=== PATIENT | male | born 1940 | race Hispanic/Latino ===

== ENCOUNTER 2018-04-01 09:21 | Emergency (ER) | payer MEDICARE ==
[2018-04-01 10:01] LABS: APPEARANCE,URINE SL CLOUDY (CLEAR); BILIRUBIN,URINE NEGATIVE (NEGATIVE); COLOR,URINE RED (YELLOW); GLUCOSE, URINE (UA) NEGATIVE (NEGATIVE); KETONES,URINE NEGATIVE (NEGATIVE); LEUKOCYTE ESTERASE ,URINE NEGATIVE (NEGATIVE); NITRATE,URINE NEGATIVE (NEGATIVE); OCCULT BLOOD,URINE LARGE (NEGATIVE); PH,URINE 7.5 (5.0-8.0); PROTEIN,URINE NEGATIVE (NEGATIVE); UROBILINOGEN,URINE 0.2 mg/dL (0.2-1.0)
[2018-04-01] MEDS ORDERED: LEVOFLOXACIN 500 MG TABLET ONE (10:13)
[2018-04-01 10:21] LABS: BACTERIA,URINE Rare /HPF (None Seen); RBC,URINE >100 /HPF (0-1); SQUAMOUS EPITHELIAL CELL,UR Rare /HPF (0-2); WBC,URINE None Seen /HPF (0-1)
== END 2018-04-01 12:35 | disposition home or self-care (01) ==
LOC: EDH 09:21
DX: R33.9 Retention of urine, unspecified (principal); E11.9 Type 2 diabetes mellitus without complications; M19.90 Unspecified osteoarthritis, unspecified site; G30.9 Alzheimer's disease, unspecified; F02.80 Dementia in other diseases classified elsewhere, unspecified severity, without behavioral disturbance, psychotic disturbance, mood disturbance, and anxiety; Z79.899 Other long term (current) drug therapy; Z90.49 Acquired absence of other specified parts of digestive tract
CPT/HCPCS: 51702; 81001

== ENCOUNTER 2018-08-21 20:52 | Emergency (ER) | payer MEDICARE ==
[2018-08-21 21:37] LABS: BASOPHILS % (AUTO) 0.2 % (0.0-5.0); HEMATOCRIT 39.7 % (42-54); LYMPHOCYTES % (AUTO) 14.9 % (21.0-51.0); MEAN CORPUSCULAR HEMOGLOBIN 29.2 pg (27.0-33.0); MEAN CORPUSCULAR HGB CONC 33.1 g/dL (32.0-36.0); MEAN CORPUSCULAR VOLUME 88.2 fL (79-99); MONOCYTES % (AUTO) 6.8 % (3.0-13.0); NEUTROPHILS % (AUTO) 77.1 % (40.0-77.0); NUCLEATED RED BLOOD CELLS 0.1 % (0.0-0.19); PLATELET COUNT (AUTO) 141 K/uL (130-400); RED CELL DISTRIBUTION WIDTH 14.7 % (11.0-15.5); WHITE BLOOD COUNT (AUTO) 7.2 K/uL (4.8-10.8)
[2018-08-21 22:07] LABS: APPEARANCE,URINE Clear (CLEAR); BILIRUBIN,URINE Negative (NEGATIVE); COLOR,URINE Yellow (YELLOW); GLUCOSE, URINE (UA) Negative (NEGATIVE); KETONES,URINE Trace mg/dL (NEGATIVE); LEUKOCYTE ESTERASE ,URINE Negative (NEGATIVE); NITRATE,URINE Negative (NEGATIVE); OCCULT BLOOD,URINE Negative (NEGATIVE); PH,URINE 5.5 (5.0-8.0); PROTEIN,URINE Negative (NEGATIVE)
[2018-08-21 22:09] LABS: CREATININE 1.1 mg/dL (0.5-1.5); POTASSIUM 4.1 mmol/L (3.5-5.1)
[2018-08-21 22:14] LABS: ALBUMIN 3.8 g/dL (3.5-5.0); BILIRUBIN,TOTAL 0.5 mg/dL (0.2-1.0); TOTAL PROTEIN, SERUM 6.7 g/dL (6.0-8.3)
[2018-08-21] MEDS ORDERED: AZITHROMYCIN 250 MG TABLET PO ONE (23:04)
[2018-08-21] MEDS ORDERED: MAG HYDROX/AL HYDROX/SIMETH ES 30 ML SUSP UDCUP ONE (23:04)
[2018-08-21] MEDS ORDERED: DEXAMETHASONE SOD PHOSPHATE 10MG/ML 1ML VIAL ONE (23:04)
[2018-08-21] MEDS ORDERED: LIDOCAINE HCL 2% VISCOUS 15 ML UDCUP ONE (23:04)
== END 2018-08-21 23:29 | disposition home or self-care (01) ==
LOC: EDH 20:52
DX: J20.9 Acute bronchitis, unspecified (principal); E86.9 Volume depletion, unspecified; E11.9 Type 2 diabetes mellitus without complications; M19.90 Unspecified osteoarthritis, unspecified site; G30.9 Alzheimer's disease, unspecified; F02.80 Dementia in other diseases classified elsewhere, unspecified severity, without behavioral disturbance, psychotic disturbance, mood disturbance, and anxiety; Z90.49 Acquired absence of other specified parts of digestive tract
CPT/HCPCS: 36415; 71046; 80053; 81003; 82550; 83605; 84484; 85025; 87040; 87804 ×2; 93005; 96374; 99284; J1100

== ENCOUNTER 2019-03-03 09:47 | Inpatient (IN) | payer MEDICARE ==
[~2019-03-03] VITALS: Ht 198.1 cm; Wt 77.8 kg
[2019-03-03 10:42] LABS: BASOPHILS % (AUTO) 0.3 % (0.0-5.0); EOSINOPHILS % (AUTO) 2.1 % (0.0-8.0); HEMATOCRIT 42.4 % (42-54); LYMPHOCYTES % (AUTO) 15.8 % (21.0-51.0); MEAN CORPUSCULAR HEMOGLOBIN 28.8 pg (27.0-33.0); MEAN CORPUSCULAR HGB CONC 33.1 g/dL (32.0-36.0); MONOCYTES % (AUTO) 9.3 % (3.0-13.0); NEUTROPHILS % (AUTO) 72.5 % (40.0-77.0); NUCLEATED RED BLOOD CELLS 0.1 % (0.0-0.19); PLATELET COUNT (AUTO) 156 K/uL (130-400); RED BLOOD CELL COUNT(AUTO) 4.88 MIL/uL (4.50-6.20); RED CELL DISTRIBUTION WIDTH 15.8 % (11.0-15.5); WHITE BLOOD COUNT (AUTO) 6.3 K/uL (4.8-10.8)
[2019-03-03 10:48] LABS: APPEARANCE,URINE Clear (CLEAR); BILIRUBIN,URINE Small (NEGATIVE); COLOR,URINE Dark Yellow (YELLOW); GLUCOSE, URINE (UA) 250 mg/dL (NEGATIVE); KETONES,URINE Trace mg/dL (NEGATIVE); LEUKOCYTE ESTERASE ,URINE Small (NEGATIVE); NITRATE,URINE Negative (NEGATIVE); OCCULT BLOOD,URINE Negative (NEGATIVE); PROTEIN,URINE Trace mg/dL (NEGATIVE)
[2019-03-03 10:50] LABS: CREATININE 0.9 mg/dL (0.5-1.5); POTASSIUM 3.9 mmol/L (3.5-5.1)
[2019-03-03 10:54] LABS: ALBUMIN 3.6 g/dL (3.5-5.0); BILIRUBIN,TOTAL 0.8 mg/dL (0.2-1.0); TOTAL PROTEIN, SERUM 6.9 g/dL (6.0-8.3)
[2019-03-03 10:57] LABS: B-TYPE NATRIURETIC PEPTIDE 254 pg/mL (0-100)
[2019-03-03 11:36] LABS: RAPID GROUP A STREP NEGATIVE (NEGATIVE)
[2019-03-03] MEDS ORDERED: CEFTRIAXONE SODIUM 1 GM ONE (12:38)
[2019-03-03] MEDS ORDERED: FUROSEMIDE 10 MG/ML 2ML VIAL ONE (12:38)
[2019-03-03] MEDS ORDERED: SODIUM CHLORIDE 0.9% 100 ML IV ONE (12:38)
[2019-03-03] MEDS ORDERED: LEVOFLOXACIN 500 MG/D5W 100 ML 100 ML ONE (13:17)
[2019-03-03 13:20] LABS: BACTERIA,URINE None Seen /HPF (None Seen); RBC,URINE None Seen /HPF (0-1); SQUAMOUS EPITHELIAL CELL,UR 0-2 /HPF (0-2)
[2019-03-03] MEDS ORDERED: NITROGLYCERIN 1GM/1 INCH PACKET TD ONE (13:25)
[2019-03-03] MEDS ORDERED: HYDRALAZINE HCL 20 MG/ML VIAL IV PRN (13:30)
[2019-03-03] MEDS: AZITHROMYCIN 500MG+NS 250ML 250 ML IV SCH (13:30)
[2019-03-03 13:54] LABS: PHOSPHORUS 2.7 mg/dL (2.5-4.9)
[2019-03-03] MEDS: FUROSEMIDE 10 MG/ML 4ML VIAL IVP SCH ×2 (14:00→21:30)
[2019-03-03 14:23] VITALS: BP 121/82
[2019-03-03 15:00] VITALS: BP 112/59
[2019-03-03] MEDS ORDERED: SITA100T12 PO (15:24)
[2019-03-03] MEDS ORDERED: BENZ-51 PO (15:24)
[2019-03-03] MEDS ORDERED: TAMS-1 PO (15:24)
[2019-03-03] MEDS ORDERED: MEMA10TA20 PO (15:24)
[2019-03-03] MEDS ORDERED: LEVO25TA54 PO (15:24)
[2019-03-03] MEDS ORDERED: ACET5SOL4 PO (15:24)
[2019-03-03] MEDS ORDERED: GLIP5TAB11 PO (15:24)
[2019-03-03] MEDS ORDERED: FINA5TAB41 PO (15:24)
[2019-03-03] MEDS ORDERED: PIOG30TA70 PO (15:24)
[2019-03-03 16:00] LABS: INR 1.1 (0.85-1.15); PARTIAL THROMBOPLASTIN TIME 29.3 SEC (26.3-35.5); PROTHROMBIN TIME 11.3 SEC (9.6-11.6)
[2019-03-03] MEDS: IPRATROPIUM/ALBUTEROL SULFATE 3 ML SOLUTION IH SCH ×2 (18:38→23:44)
[2019-03-03 19:42] VITALS: BP 96/76
[2019-03-03] MEDS: FAMOTIDINE/PF 20 MG/2 ML VIAL IV SCH (21:29)
[2019-03-03] MEDS: METOPROLOL TARTRATE 25 MG TAB PO SCH (21:30)
[2019-03-03] MEDS: CEFTRIAXONE SODIUM 1 GM IV SCH (21:30)
[2019-03-03 21:34] VITALS: BP 118/62
[2019-03-03] MEDS ORDERED: ACETAMINOPHEN-CODEINE ELIXIR 5 ML UDCUP PO PRN (22:45)
[2019-03-03 23:33] VITALS: BP 124/79
[2019-03-04 03:57] VITALS: BP 115/67
[2019-03-04 04:08] LABS: HEMATOCRIT 40.2 % (42-54); MEAN CORPUSCULAR HEMOGLOBIN 29.5 pg (27.0-33.0); MEAN CORPUSCULAR HGB CONC 34.1 g/dL (32.0-36.0); MEAN CORPUSCULAR VOLUME 86.6 fL (79-99); PLATELET COUNT (AUTO) 172 K/uL (130-400); RED BLOOD CELL COUNT(AUTO) 4.64 MIL/uL (4.50-6.20); RED CELL DISTRIBUTION WIDTH 15.5 % (11.0-15.5); WHITE BLOOD COUNT (AUTO) 6.5 K/uL (4.8-10.8)
[2019-03-04 04:26] LABS: CARBON DIOXIDE 31 mmol/L (21-32); CHLORIDE 102 mmol/L (101-111); CREATININE 1.1 mg/dL (0.5-1.5); GLOMERULAR FILTR. RATE CALC 69 mL/min (>60); GLUCOSE,RANDOM 178 mg/dL (70-105); POTASSIUM 3.9 mmol/L (3.5-5.1); SODIUM SERUM 141 mmol/L (136-145); UREA NITROGEN, BLOOD 20 mg/dL (7-18)
[2019-03-04 04:52] LABS: B-TYPE NATRIURETIC PEPTIDE 230 pg/mL (0-100)
[2019-03-04] MEDS: INSULIN HUMULIN R 100 UNIT/ML 3ML SQ SCH ×4 (06:31→22:28)
[2019-03-04] MEDS: IPRATROPIUM/ALBUTEROL SULFATE 3 ML SOLUTION IH SCH ×4 (06:32→23:27)
[2019-03-04] MEDS: LEVOTHYROXINE 25 MCG TABLET PO SCH (06:48)
[2019-03-04 07:00] VITALS: BP 99/50
[2019-03-04] MEDS: BENZONATATE 100 MG CAPSULE PO SCH ×3 (10:10→22:11)
[2019-03-04] MEDS: FINASTERIDE 5 MG TABLET PO SCH (10:10)
[2019-03-04] MEDS: MEMANTINE HCL 5 MG TABLET PO SCH ×2 (10:10→22:11)
[2019-03-04] MEDS: GLIPIZIDE 5 MG TABLET PO SCH (10:10)
[2019-03-04] MEDS: METOPROLOL TARTRATE 25 MG TAB PO SCH ×2 (10:10→22:11)
[2019-03-04] MEDS: FAMOTIDINE/PF 20 MG/2 ML VIAL IV SCH ×2 (10:10→22:11)
[2019-03-04] MEDS: CEFTRIAXONE SODIUM 1 GM IV SCH ×2 (10:10→22:17)
[2019-03-04] MEDS: LINAGLIPTIN 5 MG TABLET PO SCH (10:10)
[2019-03-04] MEDS: FUROSEMIDE 10 MG/ML 4ML VIAL IVP SCH ×3 (10:10→22:11)
[2019-03-04] MEDS: TAMSULOSIN HCL 0.4 MG CAP.ER.24H PO SCH ×2 (10:11→22:11)
[2019-03-04] MEDS: ENOXAPARIN SODIUM 40 MG/0.4 ML SYRINGE SQ SCH (10:14)
[2019-03-04] MEDS: GENTAMICIN SULFATE 0.3% 3.5 GM OPHTH OINT OS SCH ×2 (10:21→22:18)
[2019-03-04 11:00] VITALS: BP 133/56
--- NOTE | 2019-03-04 11:34 | NUR ---
DC PLAN VISITED WITH PATIENT. PATIENT LIVES WITH SPOUSE. INDEPENDENT ABLE TO PERFORM ADL'S. PATIENT HAS NO SERVICES OR DME'S. FEELS SAFE TO RETURN HOME. Addendum: 03/04/19 at 1135 by SCOTT MERAZ RN CM Amended: Links added.
[2019-03-04] MEDS: AZITHROMYCIN 500MG+NS 250ML 250 ML IV SCH (11:51)
[2019-03-04 15:00] VITALS: BP 107/65
[2019-03-04 20:18] VITALS: BP 123/67
[2019-03-04 23:55] VITALS: BP 97/66
[2019-03-05 03:35] LABS: HEMATOCRIT 39.8 % (42-54); MEAN CORPUSCULAR HGB CONC 33.3 g/dL (32.0-36.0); MEAN CORPUSCULAR VOLUME 87.2 fL (79-99); PLATELET COUNT (AUTO) 176 K/uL (130-400); RED BLOOD CELL COUNT(AUTO) 4.57 MIL/uL (4.50-6.20); RED CELL DISTRIBUTION WIDTH 15.7 % (11.0-15.5); WHITE BLOOD COUNT (AUTO) 6.8 K/uL (4.8-10.8)
[2019-03-05 03:52] LABS: CARBON DIOXIDE 31 mmol/L (21-32); CHLORIDE 100 mmol/L (101-111); CREATININE 1.2 mg/dL (0.5-1.5); GLOMERULAR FILTR. RATE CALC 62 mL/min (>60); GLUCOSE,RANDOM 150 mg/dL (70-105); POTASSIUM 3.3 mmol/L (3.5-5.1); SODIUM SERUM 140 mmol/L (136-145); UREA NITROGEN, BLOOD 30 mg/dL (7-18)
[2019-03-05 04:06] LABS: B-TYPE NATRIURETIC PEPTIDE 116 pg/mL (0-100)
[2019-03-05 04:22] VITALS: BP 102/65
[2019-03-05] MEDS: INSULIN HUMULIN R 100 UNIT/ML 3ML SQ SCH (06:11)
[2019-03-05] MEDS: LEVOTHYROXINE 25 MCG TABLET PO SCH (06:25)
[2019-03-05] MEDS: IPRATROPIUM/ALBUTEROL SULFATE 3 ML SOLUTION IH SCH (06:59)
[2019-03-05 07:58] VITALS: BP 103/59
[2019-03-05] MEDS: LINAGLIPTIN 5 MG TABLET PO SCH (08:52)
[2019-03-05] MEDS: TAMSULOSIN HCL 0.4 MG CAP.ER.24H PO SCH (08:52)
[2019-03-05] MEDS: MEMANTINE HCL 5 MG TABLET PO SCH (08:52)
[2019-03-05] MEDS: BENZONATATE 100 MG CAPSULE PO SCH (08:52)
[2019-03-05] MEDS: METOPROLOL TARTRATE 25 MG TAB PO SCH (08:53)
[2019-03-05] MEDS: GLIPIZIDE 5 MG TABLET PO SCH (08:53)
[2019-03-05] MEDS: FINASTERIDE 5 MG TABLET PO SCH (08:53)
[2019-03-05] MEDS: ENOXAPARIN SODIUM 40 MG/0.4 ML SYRINGE SQ SCH (09:00)
[2019-03-05] MEDS: FAMOTIDINE/PF 20 MG/2 ML VIAL IV SCH (09:01)
[2019-03-05] MEDS: FUROSEMIDE 10 MG/ML 4ML VIAL IVP SCH (09:01)
[2019-03-05] MEDS: CEFTRIAXONE SODIUM 1 GM IV SCH (09:01)
[2019-03-05] MEDS ORDERED: POTASSIUM CHLORIDE 20 MEQ ERTAB PO SCH (09:15)
[2019-03-05] MEDS ORDERED: LEVO500T2 PO (09:34)
[2019-03-05] MEDS ORDERED: IPRA3AMP24 IH (09:34)
[2019-03-05] MEDS ORDERED: METO25 PO (09:34)
== END 2019-03-05 12:15 | disposition home or self-care (01) | DRG 193 ==
LOC: EDH 09:47 → EDHIP 13:25 → 2AH 14:43
PROVIDERS: ADMIT Internal Medicine; ATTEND Internal Medicine
DX: J18.9 Pneumonia, unspecified organism (principal); J96.01 Acute respiratory failure with hypoxia; I50.1 Left ventricular failure, unspecified; N39.0 Urinary tract infection, site not specified; E11.65 Type 2 diabetes mellitus with hyperglycemia; F32.9 Major depressive disorder, single episode, unspecified; F02.80 Dementia in other diseases classified elsewhere, unspecified severity, without behavioral disturbance, psychotic disturbance, mood disturbance, and anxiety; G30.9 Alzheimer's disease, unspecified; M19.90 Unspecified osteoarthritis, unspecified site; N40.0 Benign prostatic hyperplasia without lower urinary tract symptoms; Z80.0 Family history of malignant neoplasm of digestive organs; Z79.84 Long term (current) use of oral hypoglycemic drugs; Z80.1 Family history of malignant neoplasm of trachea, bronchus and lung; Z90.49 Acquired absence of other specified parts of digestive tract; I50.9 Heart failure, unspecified
CPT/HCPCS: 36415; 71045; 71250; 80048; 80053; 81001; 82550; 82948; 83036; 83605; 83735; 83880; 84100; 84145; 84484; 85025; 85027; 85610; 85730; 87077; 87088; 87186; 87804; 87880; 93005; 94640; 94664; G0378; J0456; J0696; J1650; J1815; J1940; J1956; J3490

== ENCOUNTER 2021-03-25 02:26 | Inpatient (IN) | payer OTHER, MEDICARE ==
[~2021-03-25] VITALS: Ht 177.8 cm; Wt 75.0 kg
[~2021-03-25 02:26] MED LIST: ACET5SOL4 PO; BENZ-70 PO; FINA5TAB41 PO; GLIP5TAB11 PO; IPRA3AMP24 IH; LEVO25TA54 PO; LEVO500T2 PO; MEMA10TA55 PO; METO25 PO; SITA100T12 PO; TAMS-1 PO
[2021-03-25 03:20] LABS: ABG BASE EXCESS 0.2 mmol/L (-2.0-3.0); ABG HCO3 23.2 mmol/L (21.0-28.0); ABG OXYGEN SATURATION 95.2 % (95.0-99.0); ABG PCO2 33 mmHg (35-48)
[2021-03-25 03:28] LABS: BASOPHILS % (AUTO) 0.3 % (0.0-5.0); EOSINOPHILS % (AUTO) 2.6 % (0.0-8.0); HEMATOCRIT 37.3 % (42-54); LYMPHOCYTES % (AUTO) 22.5 % (21.0-51.0); MEAN CORPUSCULAR HEMOGLOBIN 30.1 pg (27.0-33.0); MEAN CORPUSCULAR VOLUME 91.2 fL (79-99); MONOCYTES % (AUTO) 8.2 % (3.0-13.0); NEUTROPHILS % (AUTO) 65.9 % (40.0-77.0); PLATELET COUNT (AUTO) 185 K/uL (130-400); RED BLOOD CELL COUNT(AUTO) 4.09 MIL/uL (4.50-6.20); RED CELL DISTRIBUTION WIDTH 13.6 % (11.0-15.5); WHITE BLOOD COUNT (AUTO) 6.2 K/uL (4.8-10.8)
[2021-03-25 03:32] LABS: CREATININE 0.7 mg/dL (0.5-1.5); POTASSIUM 4.4 mmol/L (3.5-5.1)
[2021-03-25 03:44] LABS: ALBUMIN 3.4 g/dL (3.5-5.0); BILIRUBIN,TOTAL 1.1 mg/dL (0.2-1.0); TOTAL PROTEIN, SERUM 6.3 g/dL (6.0-8.3)
[2021-03-25 03:49] LABS: B-TYPE NATRIURETIC PEPTIDE 790 pg/mL (0-100)
[2021-03-25] MEDS ORDERED: FUROSEMIDE 40MG VIAL IV ONE (04:00)
[2021-03-25] MEDS ORDERED: ASPIRIN 325MG TAB PO ONE (04:00)
[2021-03-25] MEDS ORDERED: AZITHROMYCIN 500MG+NS 250ML 250 ML IV ONE (04:30)
[2021-03-25] MEDS ORDERED: AZITHROMYCIN 500MG VIAL IVPB ONE (04:30)
[2021-03-25] MEDS ORDERED: DEXTROSE 50%-WATER 50 ML DISP.SYRIN IV PRN (04:30)
[2021-03-25] MEDS ORDERED: IPRATROPIUM/ALBUTEROL SULFATE 3 ML SOLUTION IH PRN (04:30)
[2021-03-25] MEDS ORDERED: NITROGLYCERIN 0.4 MG SL TAB SL PRN (04:30)
[2021-03-25] MEDS ORDERED: CEFTRIAXONE 1G VIAL IVP ONE (04:30)
[2021-03-25] MEDS ORDERED: PIOG30TA70 PO (04:30)
[2021-03-25] MEDS ORDERED: ACETAMINOPHEN 325 MG TAB PO PRN ×2 (04:30)
[2021-03-25] MEDS ORDERED: GLUCAGON 1MG KIT 1 MG ML IM PRN (04:30)
[2021-03-25] MEDS ORDERED: METF-446 PO (04:30)
[2021-03-25] MEDS ORDERED: PRAV10TA39 PO (04:30)
[2021-03-25] MEDS ORDERED: ONDANSETRON 4MG INJ IV PRN (04:30)
[2021-03-25] MEDS ORDERED: LEVO25CA4 PO (04:30)
[2021-03-25 04:43] LABS: INR 1.17 (0.85-1.15); PROTHROMBIN TIME 12.6 SEC (9.6-11.6)
[2021-03-25 04:45] LABS: HEMOGLOBIN A1C 7.1 % (4.0-6.0)
[2021-03-25 04:56] LABS: CRP QUANTITATIVE < 2.00 mg/L (0.00-9.0)
[2021-03-25 05:08] LABS: APPEARANCE,URINE Clear (CLEAR); BILIRUBIN,URINE Negative (NEGATIVE); COLOR,URINE Yellow (YELLOW); GLUCOSE, URINE (UA) Negative (NEGATIVE); KETONES,URINE Negative (NEGATIVE); LEUKOCYTE ESTERASE ,URINE Large (NEGATIVE); NITRATE,URINE Negative (NEGATIVE); OCCULT BLOOD,URINE Negative (NEGATIVE); PH,URINE 6.5 (5.0-8.0); PROTEIN,URINE Negative (NEGATIVE)
[2021-03-25 05:27] LABS: BACTERIA,URINE Few /HPF (None Seen); RBC,URINE None Seen /HPF (0-1)
[2021-03-25] MEDS ORDERED: MAGNESIUM 2GM PREMIX 50ML 50 ML IV SCH (05:30)
[2021-03-25] MEDS: INSULIN HUMULIN R 100 UNIT/ML 3ML SQ SCH ×4 (07:30→20:49)
[2021-03-25] MEDS: ENOXAPARIN SODIUM 30 MG/0.3 ML SQ SCH (09:00)
[2021-03-25] MEDS: FAMOTIDINE 20MG TAB PO SCH ×2 (09:00→20:33)
[2021-03-25 10:42] LABS: HEMATOCRIT 40.9 % (42-54); MEAN CORPUSCULAR HEMOGLOBIN 30.1 pg (27.0-33.0); MEAN CORPUSCULAR HGB CONC 32.8 g/dL (32.0-36.0); MEAN CORPUSCULAR VOLUME 91.9 fL (79-99); RED BLOOD CELL COUNT(AUTO) 4.45 MIL/uL (4.50-6.20); RED CELL DISTRIBUTION WIDTH 13.7 % (11.0-15.5); WHITE BLOOD COUNT (AUTO) 6.5 K/uL (4.8-10.8)
[2021-03-25 10:56] LABS: ALBUMIN 3.8 g/dL (3.5-5.0); BILIRUBIN,TOTAL 1.1 mg/dL (0.2-1.0); CREATININE 0.8 mg/dL (0.5-1.5); POTASSIUM 3.5 mmol/L (3.5-5.1); TOTAL PROTEIN, SERUM 7.4 g/dL (6.0-8.3)
[2021-03-25] MEDS ORDERED: IOHEXOL-350 75 ML VIAL IV ONE (13:07)
[2021-03-25] MEDS: FUROSEMIDE 20MG VIAL IV SCH ×2 (13:30→23:55)
[2021-03-25 18:20] VITALS: BP 139/70
[2021-03-25 20:28] VITALS: BP 109/61
[2021-03-26] VITALS (9 sets, daily range): BP systolic 90–125; BP diastolic 54–78
[2021-03-26 04:51] LABS: BASOPHILS % (AUTO) 0.3 % (0.0-5.0); EOSINOPHILS % (AUTO) 2.7 % (0.0-8.0); HEMATOCRIT 41.2 % (42-54); LYMPHOCYTES % (AUTO) 19.7 % (21.0-51.0); MEAN CORPUSCULAR HEMOGLOBIN 30.1 pg (27.0-33.0); MEAN CORPUSCULAR HGB CONC 32.8 g/dL (32.0-36.0); MEAN CORPUSCULAR VOLUME 91.8 fL (79-99); MONOCYTES % (AUTO) 9.3 % (3.0-13.0); NEUTROPHILS % (AUTO) 67.5 % (40.0-77.0); PLATELET COUNT (AUTO) 198 K/uL (130-400); RED BLOOD CELL COUNT(AUTO) 4.49 MIL/uL (4.50-6.20); RED CELL DISTRIBUTION WIDTH 13.8 % (11.0-15.5); WHITE BLOOD COUNT (AUTO) 6.4 K/uL (4.8-10.8)
[2021-03-26 05:20] LABS: ALBUMIN 3.3 g/dL (3.5-5.0); BILIRUBIN,TOTAL 0.8 mg/dL (0.2-1.0); MAGNESIUM 1.8 mg/dL (1.80-2.40); POTASSIUM 3.3 mmol/L (3.5-5.1); TOTAL PROTEIN, SERUM 6.6 g/dL (6.0-8.3)
[2021-03-26] MEDS: INSULIN HUMULIN R 100 UNIT/ML 3ML SQ SCH ×3 (05:30→20:26)
[2021-03-26] MEDS ORDERED: METOPROLOL TARTRATE 1 MG/ML 5ML VIAL IV ONE ×2 (05:41→06:00)
[2021-03-26] MEDS: POTASSIUM CHLORIDE 10% ELIXIR 20 MEQ/15 ML UDCUP PO PRN (05:45)
[2021-03-26] MEDS ORDERED: POTASSIUM CHLORIDE 20MEQ/100ML 100 ML IV PRN (06:00)
[2021-03-26] MEDS ORDERED: LIDOCAINE HCL-MPF 1% 2ML VIAL IV PRN (06:00)
[2021-03-26] MEDS ORDERED: KCL 20 MEQ ERTAB PO PRN (06:00)
[2021-03-26] MEDS ORDERED: 0.9% NACL 250ML IVPB SCH (09:00)
[2021-03-26] MEDS ORDERED: AZITHROMYCIN 500MG VIAL IVPB SCH (09:00)
[2021-03-26] MEDS: AZITHROMYCIN 500MG+NS 250ML 250 ML IV SCH (09:20)
[2021-03-26] MEDS: FAMOTIDINE 20MG TAB PO SCH ×2 (09:20→20:22)
[2021-03-26] MEDS: CEFTRIAXONE 1G VIAL IV SCH (09:20)
[2021-03-26] MEDS: ENOXAPARIN SODIUM 30 MG/0.3 ML SQ SCH (09:21)
[2021-03-26] MEDS: FUROSEMIDE 20MG VIAL IV SCH (12:16)
[2021-03-26] MEDS ORDERED: SODIUM CHLORIDE 3% FOR INHALATION 4 ML/AMP VIAL.NEB IH ONE (19:12)
[2021-03-26] MEDS: MEMANTINE HCL 5 MG TABLET PO SCH (20:22)
[2021-03-27] VITALS (7 sets, daily range): BP systolic 99–119; BP diastolic 54–74
[2021-03-27] MEDS: FUROSEMIDE 20MG VIAL IV SCH ×2 (00:37→11:41)
[2021-03-27] MEDS: POTASSIUM CHLORIDE 10% ELIXIR 20 MEQ/15 ML UDCUP PO PRN (00:39)
[2021-03-27 05:06] LABS: MAGNESIUM 2.1 mg/dL (1.80-2.40); POTASSIUM 4.1 mmol/L (3.5-5.1)
[2021-03-27] MEDS: INSULIN HUMULIN R 100 UNIT/ML 3ML SQ SCH ×4 (06:30→21:25)
[2021-03-27] MEDS ORDERED: 0.9% NACL 250ML 250 ML ONE (08:28)
[2021-03-27] MEDS: CEFTRIAXONE 1G VIAL IV SCH (08:40)
[2021-03-27] MEDS: AZITHROMYCIN 500MG+NS 250ML 250 ML IV SCH (08:40)
[2021-03-27] MEDS: TAMSULOSIN HCL 0.4 MG CAP.ER.24H PO SCH (08:41)
[2021-03-27] MEDS: FINASTERIDE 5 MG TABLET PO SCH (08:41)
[2021-03-27] MEDS: LEVOTHYROXINE 25 MCG TABLET PO SCH (08:41)
[2021-03-27] MEDS: MEMANTINE HCL 5 MG TABLET PO SCH ×2 (08:41→21:18)
[2021-03-27] MEDS: ENOXAPARIN SODIUM 30 MG/0.3 ML SQ SCH (08:41)
[2021-03-27] MEDS: ATORVASTATIN 10 MG TABLET PO SCH (08:41)
[2021-03-27] MEDS: FAMOTIDINE 20MG TAB PO SCH ×2 (08:41→21:18)
[2021-03-27 11:15] LABS: BASOPHILS % (AUTO) 0.5 % (0.0-5.0); EOSINOPHILS % (AUTO) 5.9 % (0.0-8.0); HEMATOCRIT 39.8 % (42-54); LYMPHOCYTES % (AUTO) 23.2 % (21.0-51.0); MEAN CORPUSCULAR HEMOGLOBIN 30.2 pg (27.0-33.0); MEAN CORPUSCULAR HGB CONC 32.7 g/dL (32.0-36.0); MEAN CORPUSCULAR VOLUME 92.3 fL (79-99); MONOCYTES % (AUTO) 9.1 % (3.0-13.0); PLATELET COUNT (AUTO) 204 K/uL (130-400); RED BLOOD CELL COUNT(AUTO) 4.31 MIL/uL (4.50-6.20); RED CELL DISTRIBUTION WIDTH 13.8 % (11.0-15.5); WHITE BLOOD COUNT (AUTO) 5.7 K/uL (4.8-10.8)
[2021-03-27 11:19] LABS: POTASSIUM 4.1 mmol/L (3.5-5.1)
[2021-03-28 03:41] VITALS: BP 103/62
[2021-03-28 06:39] LABS: CREATININE 0.9 mg/dL (0.5-1.5); MAGNESIUM 2.2 mg/dL (1.80-2.40); POTASSIUM 4.5 mmol/L (3.5-5.1)
[2021-03-28] MEDS: INSULIN HUMULIN R 100 UNIT/ML 3ML SQ SCH ×4 (06:50→20:40)
[2021-03-28 08:30] VITALS: BP 106/61
[2021-03-28] MEDS ORDERED: 0.9% NACL 250ML 250 ML ONE (08:34)
[2021-03-28] MEDS: TAMSULOSIN HCL 0.4 MG CAP.ER.24H PO SCH (08:47)
[2021-03-28] MEDS: ATORVASTATIN 10 MG TABLET PO SCH (08:47)
[2021-03-28] MEDS: FUROSEMIDE 40 MG TABLET PO SCH (08:47)
[2021-03-28] MEDS: FINASTERIDE 5 MG TABLET PO SCH (08:47)
[2021-03-28] MEDS: LEVOTHYROXINE 25 MCG TABLET PO SCH (08:47)
[2021-03-28] MEDS: MEMANTINE HCL 5 MG TABLET PO SCH ×2 (08:48→20:37)
[2021-03-28] MEDS: FAMOTIDINE 20MG TAB PO SCH ×2 (08:48→20:37)
[2021-03-28] MEDS: CEFTRIAXONE 1G VIAL IV SCH (08:49)
[2021-03-28] MEDS: ENOXAPARIN SODIUM 30 MG/0.3 ML SQ SCH (08:49)
[2021-03-28] MEDS: AZITHROMYCIN 500MG+NS 250ML 250 ML IV SCH (08:50)
[2021-03-28 11:56] VITALS: BP 113/72
[2021-03-28] MEDS ORDERED: LEVOFLOXACIN 500 MG TABLET PO SCH (13:30)
[2021-03-28 16:21] VITALS: BP 108/64
[2021-03-28 20:04] VITALS: BP 122/58
[2021-03-28] MEDS ORDERED: CARVEDILOL 3.125 MG TABLET PO SCH (21:00)
[2021-03-28 23:07] VITALS: BP 93/46
[2021-03-29 04:09] VITALS: BP 107/59
[2021-03-29 04:47] LABS: BASOPHILS % (AUTO) 0.3 % (0.0-5.0); EOSINOPHILS % (AUTO) 8.9 % (0.0-8.0); LYMPHOCYTES % (AUTO) 21.7 % (21.0-51.0); MEAN CORPUSCULAR HEMOGLOBIN 30.1 pg (27.0-33.0); MEAN CORPUSCULAR HGB CONC 32.3 g/dL (32.0-36.0); MEAN CORPUSCULAR VOLUME 93.1 fL (79-99); MONOCYTES % (AUTO) 9.2 % (3.0-13.0); NEUTROPHILS % (AUTO) 59.2 % (40.0-77.0); PLATELET COUNT (AUTO) 188 K/uL (130-400); RED BLOOD CELL COUNT(AUTO) 4.19 MIL/uL (4.50-6.20); RED CELL DISTRIBUTION WIDTH 13.6 % (11.0-15.5); WHITE BLOOD COUNT (AUTO) 6.1 K/uL (4.8-10.8)
[2021-03-29 05:21] LABS: CREATININE 0.9 mg/dL (0.5-1.5); POTASSIUM 3.9 mmol/L (3.5-5.1); THYROID STIMULATING HORMONE 1.78 uIU/mL (0.36-3.74)
[2021-03-29] MEDS: INSULIN HUMULIN R 100 UNIT/ML 3ML SQ SCH ×4 (06:46→20:47)
[2021-03-29 08:24] VITALS: BP 139/70
[2021-03-29 08:54] LABS: CHOLESTEROL 129 mg/dL (<200); HDL CHOLESTEROL 40 mg/dL (29-71); LDL DIRECT 73 mg/dL (0-99); TRIGLYCERIDES 66 mg/dL (30-200)
[2021-03-29] MEDS: FUROSEMIDE 40 MG TABLET PO SCH (09:00)
[2021-03-29] MEDS: ENOXAPARIN SODIUM 30 MG/0.3 ML SQ SCH (09:00)
[2021-03-29] MEDS: METOPROLOL SUCCINATE 50 MG TAB.SR.24H PO SCH (09:38)
[2021-03-29] MEDS: LEVOFLOXACIN 500 MG TABLET PO SCH (09:38)
[2021-03-29] MEDS: ATORVASTATIN 10 MG TABLET PO SCH (09:38)
[2021-03-29] MEDS: MEMANTINE HCL 5 MG TABLET PO SCH ×2 (09:38→20:39)
[2021-03-29] MEDS: FINASTERIDE 5 MG TABLET PO SCH (09:38)
[2021-03-29] MEDS: LEVOTHYROXINE 25 MCG TABLET PO SCH (09:39)
[2021-03-29] MEDS: LISINOPRIL 2.5 MG TABLET PO SCH (09:39)
[2021-03-29] MEDS: FAMOTIDINE 20MG TAB PO SCH ×2 (09:39→20:38)
[2021-03-29] MEDS: TAMSULOSIN HCL 0.4 MG CAP.ER.24H PO SCH (09:39)
[2021-03-29 12:08] VITALS: BP 105/57
[2021-03-29 17:32] VITALS: BP 104/68
[2021-03-29 20:18] VITALS: BP 109/70
[2021-03-29 23:45] VITALS: BP 105/63
[2021-03-30 04:09] VITALS: BP 101/69
[2021-03-30] MEDS: INSULIN HUMULIN R 100 UNIT/ML 3ML SQ SCH ×4 (06:16→21:49)
[2021-03-30 07:38] LABS: BASOPHILS % (AUTO) 0.3 % (0.0-5.0); EOSINOPHILS % (AUTO) 7.1 % (0.0-8.0); HEMATOCRIT 42.3 % (42-54); LYMPHOCYTES % (AUTO) 27.7 % (21.0-51.0); MEAN CORPUSCULAR HEMOGLOBIN 29.7 pg (27.0-33.0); MEAN CORPUSCULAR HGB CONC 31.9 g/dL (32.0-36.0); MEAN CORPUSCULAR VOLUME 93.2 fL (79-99); MONOCYTES % (AUTO) 8.1 % (3.0-13.0); NEUTROPHILS % (AUTO) 56.3 % (40.0-77.0); PLATELET COUNT (AUTO) 198 K/uL (130-400); RED BLOOD CELL COUNT(AUTO) 4.54 MIL/uL (4.50-6.20); RED CELL DISTRIBUTION WIDTH 13.6 % (11.0-15.5)
[2021-03-30 07:54] LABS: CREATININE 0.9 mg/dL (0.5-1.5); MAGNESIUM 2.1 mg/dL (1.80-2.40); POTASSIUM 3.9 mmol/L (3.5-5.1)
[2021-03-30 08:00] VITALS: BP 123/73
[2021-03-30] MEDS ORDERED: IOHEXOL-350 75 ML VIAL IV ONE (08:18)
[2021-03-30] MEDS: NITROGLYCERIN 0.4 MG SL TAB SL SCH (08:30)
[2021-03-30] MEDS: FUROSEMIDE 40 MG TABLET PO SCH (09:00)
[2021-03-30] MEDS: FINASTERIDE 5 MG TABLET PO SCH (09:00)
[2021-03-30] MEDS: ENOXAPARIN SODIUM 30 MG/0.3 ML SQ SCH (09:00)
[2021-03-30] MEDS: LEVOTHYROXINE 25 MCG TABLET PO SCH (09:00)
[2021-03-30] MEDS: FAMOTIDINE 20MG TAB PO SCH ×2 (09:00→20:30)
[2021-03-30] MEDS: MEMANTINE HCL 5 MG TABLET PO SCH ×2 (09:00→20:30)
[2021-03-30] MEDS: TAMSULOSIN HCL 0.4 MG CAP.ER.24H PO SCH (09:00)
[2021-03-30] MEDS: METOPROLOL SUCCINATE 50 MG TAB.SR.24H PO SCH (09:00)
[2021-03-30] MEDS: LISINOPRIL 2.5 MG TABLET PO SCH (09:00)
[2021-03-30] MEDS: METOPROLOL TARTRATE 25 MG TAB PO SCH (09:08)
[2021-03-30] MEDS ORDERED: METOPROLOL TARTRATE 1 MG/ML 5ML VIAL IV ONE ×3 (10:59→11:10)
[2021-03-30 12:00] VITALS: BP 110/72
[2021-03-30] MEDS: ATORVASTATIN 10 MG TABLET PO SCH (15:23)
[2021-03-30] MEDS: LEVOFLOXACIN 500 MG TABLET PO SCH (15:23)
[2021-03-30 16:00] VITALS: BP 97/64
[2021-03-30 20:32] VITALS: BP 90/53
[2021-03-31 00:15] VITALS: BP 98/42
[2021-03-31 00:32] VITALS: BP 88/53
[2021-03-31] MEDS ORDERED: NACL IV ONE (01:00)
[2021-03-31 04:13] VITALS: BP 105/64
[2021-03-31 05:30] LABS: HEMATOCRIT 38.6 % (42-54); MEAN CORPUSCULAR HGB CONC 32.4 g/dL (32.0-36.0); MEAN CORPUSCULAR VOLUME 92.8 fL (79-99); RED BLOOD CELL COUNT(AUTO) 4.16 MIL/uL (4.50-6.20); RED CELL DISTRIBUTION WIDTH 13.6 % (11.0-15.5); WHITE BLOOD COUNT (AUTO) 5.7 K/uL (4.8-10.8)
[2021-03-31] MEDS: INSULIN HUMULIN R 100 UNIT/ML 3ML SQ SCH (05:30)
[2021-03-31 06:14] LABS: CREATININE 0.9 mg/dL (0.5-1.5); POTASSIUM 3.9 mmol/L (3.5-5.1)
[2021-03-31] MEDS ORDERED: FURO40TA7 PO (07:25)
[2021-03-31] MEDS ORDERED: ATOR10 PO (07:25)
[2021-03-31] MEDS ORDERED: METO50TA9 PO (07:25)
[2021-03-31] MEDS ORDERED: LISI2.5T13 PO (07:25)
[2021-03-31] MEDS ORDERED: LEVO500T90 PO (07:35)
[2021-03-31] MEDS ORDERED: POTA10CA44 PO (07:35)
[2021-03-31] MEDS ORDERED: MAGN300C PO (07:35)
[2021-03-31 08:00] VITALS: BP 117/64
[2021-03-31] MEDS: METOPROLOL TARTRATE 25 MG TAB PO SCH (08:30)
[2021-03-31] MEDS: NITROGLYCERIN 0.4 MG SL TAB SL SCH (08:30)
[2021-03-31] MEDS: ENOXAPARIN SODIUM 30 MG/0.3 ML SQ SCH (09:00)
[2021-03-31] MEDS: LISINOPRIL 2.5 MG TABLET PO SCH (11:03)
[2021-03-31] MEDS: FUROSEMIDE 40 MG TABLET PO SCH (11:03)
[2021-03-31] MEDS: LEVOFLOXACIN 500 MG TABLET PO SCH (11:03)
[2021-03-31] MEDS: METOPROLOL SUCCINATE 50 MG TAB.SR.24H PO SCH (11:04)
[2021-03-31] MEDS: ATORVASTATIN 10 MG TABLET PO SCH (11:05)
[2021-03-31] MEDS: TAMSULOSIN HCL 0.4 MG CAP.ER.24H PO SCH (11:13)
[2021-03-31] MEDS: MEMANTINE HCL 5 MG TABLET PO SCH (11:14)
[2021-03-31] MEDS: FAMOTIDINE 20MG TAB PO SCH (11:14)
[2021-03-31] MEDS: LEVOTHYROXINE 25 MCG TABLET PO SCH (11:14)
[2021-03-31] MEDS: FINASTERIDE 5 MG TABLET PO SCH (11:14)
[2021-03-31 12:00] VITALS: BP 119/64
== END 2021-03-31 12:00 | disposition home or self-care (01) | DRG 177 ==
LOC: EDH 02:26 → EDHIP 04:14 → 3BH 18:16
PROVIDERS: ADMIT Internal Medicine; ATTEND Internal Medicine
DX: J15.6 Pneumonia due to other Gram-negative bacteria (principal); J96.01 Acute respiratory failure with hypoxia; I50.23 Acute on chronic systolic (congestive) heart failure; J98.11 Atelectasis; J47.0 Bronchiectasis with acute lower respiratory infection; E46 Unspecified protein-calorie malnutrition; I42.8 Other cardiomyopathies; I11.0 Hypertensive heart disease with heart failure; N40.0 Benign prostatic hyperplasia without lower urinary tract symptoms; E11.9 Type 2 diabetes mellitus without complications; M19.90 Unspecified osteoarthritis, unspecified site; E87.6 Hypokalemia; Z20.822 Contact with and (suspected) exposure to COVID-19; D64.9 Anemia, unspecified; I25.10 Atherosclerotic heart disease of native coronary artery without angina pectoris; E03.9 Hypothyroidism, unspecified; E78.5 Hyperlipidemia, unspecified; F03.90 Unspecified dementia, unspecified severity, without behavioral disturbance, psychotic disturbance, mood disturbance, and anxiety; B95.61 Methicillin susceptible Staphylococcus aureus infection as the cause of diseases classified elsewhere; Z60.2 Problems related to living alone; Z68.23 Body mass index [BMI] 23.0-23.9, adult; Z79.899 Other long term (current) drug therapy; Z79.84 Long term (current) use of oral hypoglycemic drugs; Z81.8 Family history of other mental and behavioral disorders; Z80.0 Family history of malignant neoplasm of digestive organs; Z80.1 Family history of malignant neoplasm of trachea, bronchus and lung
CPT/HCPCS: 36415; 36600; 71045; 71275; 75574; 80048; 80053; 80061; 81001; 82330; 82550; 82803; 82948; 83036; 83605; 83735; 83874; 83880; 84132; 84145; 84443; 84484; 85025; 85027; 85378; 85610; 85730; 86140; 87040; 87071; 87077; 87088; 87186; 87205; 87486; 87581; 87633; 87635; 87798; 87804; 93005; 93306; 93356; 93970; 94640; 94760; 97039; C9803; G0378; J0456; J0696; J1650; J1815; J1940; J3475; J3490; J7050; Q9967

== ENCOUNTER → 2021-11-26 | Outpatient (CLI) | payer OTHER, MEDICARE ==
[~2021-11-26] MED LIST changes: +ATOR10 PO; +FURO40TA7 PO; +LEVO25CA4 PO; +LEVO500T90 PO; +LISI2.5T13 PO; +MAGN300C PO; +METF-446 PO; -METO25 PO; +METO50TA9 PO; +PIOG30TA70 PO; +POTA10CA44 PO
== END | disposition home or self-care (01) ==
LOC: SHCH 16:16
PROVIDERS: ATTEND Student in an Organized Health Care Education/Training Program
DX: I11.0 Hypertensive heart disease with heart failure (principal); I50.9 Heart failure, unspecified; E11.9 Type 2 diabetes mellitus without complications; E03.9 Hypothyroidism, unspecified; F03.90 Unspecified dementia, unspecified severity, without behavioral disturbance, psychotic disturbance, mood disturbance, and anxiety
CPT/HCPCS: 93306